=== PATIENT | male | born 1975 | race Caucasian/White ===

== ENCOUNTER → 2020-05-23 07:24 | Outpatient (CLI) | payer BC, SELFPAY ==
--- NOTE | ~2020-05-23 | MR_ITS ---
EXAMINATION: MR knee RT wo con DATE: 05/23/2020 08:12 INDICATION: Right knee pain post climbing injury with pop one and half weeks prior TECHNIQUE: Magnetic resonance imaging (MRI) of the right knee was performed without intravenous contr ast. Sequences included coronal PD-weighted FSE, coronal PD-weighted FS FSE, sagittal T2-weighted FS E, sagittal PD-weighted FS FSE and axial PD weighted fat saturated FSE. COMPARISON: Radiographs dated 03/17/2020 FINDINGS: Medial compartment: There is a very small radial tear along the inner third of the posterior horn of the medial meniscus. There are adjacent small partial-thickness chondral fissures along the immediately overlying anterio r weightbearing medial femoral condyle and underlying medial tibial plateau, both without degenerativ e subchondral changes.. Lateral compartment: Lateral meniscus is normal. Small region of partial-thickness chondral fissuring without degenerative subchondral changes along the posterior aspect of the lateral tibial plateau. Patellofemoral compartment: Small partial-thickness chondral fissure at the central aspect of the lateral tibial plateau involvin g up to 50% the cartilage thickness. Deeper chondral fissuring with minimal underlying subarticular e malika at the patellar apical ridge and medial facet. Deep chondral fissuring with minimal underlying c ortical irregularity at the caudal aspect of the trochlear groove. Remainder of the trochlear cartila ge is normal. Ligaments and tendons: Anterior and posterior cruciate ligaments are normal. The fibular collateral ligament complex is norm al. Mild edema surrounding the otherwise normal-appearing proximal medial collateral ligament consist ent with likely recent low-grade sprain. The extensor mechanism is normal. The visualized medial and lateral hamstring tendons as well as the iliotibial band are normal. Fluid: Small to moderate-sized right knee joint effusion. No loose osteochondral bodies identified. Mild pre patellar edema without discrete bursal fluid collection. Osseous/other: Minimal edema at the proximal tibia anterior to the intercondylar eminence underlying the insertion o f the intact appearing anterior root of the medial meniscus. 5 mm lesion in the distal metaphyseal re gion of the femur which is isointense to the cartilage of likely representing a small enchondroma. IMPRESSION: 1. Low-grade sprain of the proximal medial collateral ligament. 2. Small radial tear along the inner free edge of the posterior horn of the medial meniscus. 3. Mild tricompartmental osteoarthritis with small regions of high-grade chondral malacia in the harper llofemoral compartment and small regions of moderate grade chondral malacia in the medial and lateral compartments as detailed above. 4. Likely reactive small to moderate-sized knee joint effusion. Reviewed, dictated and finalized at location A. [employer] IMPRESSION: 1. Low-grade sprain of the proximal medial collateral ligament. 2. Small radial tear along the inner free edge of the posterior horn of the med ial meniscus. 3. Mild tricompartmental osteoarthritis with small regions of high-grade chondr al malacia in the patellofemoral compartment and small regions of moderate grad e chondral malacia in the medial and lateral compartments as detailed above. 4. Likely reactive small to moderate-sized knee joint effusion.
== END ==
PROVIDERS: Visit Provider Nurse Practitioner Family
DX: S83.411A Sprain of medial collateral ligament of right knee, initial encounter (principal); X58.XXXA Exposure to other specified factors, initial encounter; M17.11 Unilateral primary osteoarthritis, right knee
CPT/HCPCS: 73721

== ENCOUNTER 2020-06-10 01:05 | Day surgery (SDC) | payer BC, SELFPAY ==
[2020-06-01 17:49] VITALS: BMI 46.1
[2020-06-10] VITALS (7 sets, daily range): BP systolic 126–152; BP diastolic 94–99; PULSE 74–93; RESP 12–20; TEMP 36.3–36.6; O2SAT 95–99
--- NOTE | 2020-06-10 07:21 | WPDHPUPDATE1 ---
History and Physical Update Update Date/Time: 06/10/20 07:21 History and Physical has been reviewed, including an updated exam of the patient. There are NO changes in the patient's condition. Risks, benefits, and alternatives have been discussed and questions answered. Patient agrees to proceed with procedure.
[2020-06-10] MEDS: ACETAMINOPHEN 500 MG TABLET 1000 MG PO (11:55)
[2020-06-10] MEDS: CELECOXIB 200 MG CAPSULE PO (11:56)
[2020-06-10] MEDS: LACTATED RINGERS 1,000 ML 30 ML IV CONT ×2 (11:57→14:33)
--- NOTE | 2020-06-10 13:25 | WPDANESEPPF ---
Anes - Initial Pre Proc Eval Procedure: Operation Date: 06/10/20 13:30 Proposed Procedures p Right Knee Arthroscopy, Proceed As Indicated - Derrick Bonner MD Date/Time: 06/10/20 13:25 Surgeon: Derrick Bonner MD Pre Op Diagnosis: right medial meniscus tear Patient Data Age: 44 Gender: M Height: 5 ft 11 in Weight: 107.6 kg Last Vital Signs Temp 36.6 C 06/10/20 11:43 Pulse 93 06/10/20 11:43 Resp 20 06/10/20 11:43 BP 126/96 H 06/10/20 11:43 Pulse Ox 98 06/10/20 11:43 Allergies Allergy/AdvReac Type Severity Reaction Status Date / Time No Known Allergies Allergy Verified 06/10/20 12:17 Home Medications Medication Instructions Recorded Confirmed Type multivitamin [Daily Multivitamin] 1 tablet PO DAILY 06/01/20 06/10/20 History Patient hx anesthesia problems: none Family hx anesthesia problems: none PMFSH Past Medical History Medical History High blood pressure determined by examination Knee effusion, right Knee injury Medial meniscus tear Plantar fasciitis Right knee pain Social History Social History Smoking packs per day: 0.75 Smoking cigarettes per day: 15.0 Years smoked: 25 Smoking pack-years: 18.75 Smoking status: Former smoker Tobacco type: cigarettes Smoking end date: 04/30/17 Alcohol intake: current Drinks per week: 28 Last use: 04/2017 Living arrangements: with family Spiritual care concerns: No Anes - Eval Final PreProcedure Day of Procedure 06/10/20 13:25 Patient weight: obese Heart: regular rate and rhythm Lungs: clear to auscultation Airway: Mallampati scale class II Neurological: alert and oriented Last oral intake: >/= 8 hours ASA classification: II Emergent: no Anesthetic plan: proceed Anesthesia type and monitoring: general LMA and standard monitoring Informed Consent: The patient's anesthetic plan and its attendant risks and benefits were discussed with the patient/family/POA. Questions were solicited and answers provided to the satisfaction of the patient/family/POA.
[2020-06-10] MEDS: ceFAZolin 3 GM/D5W 100 ML 100 ML IVPB (13:38)
[2020-06-10] MEDS: BUPIVACAINE HCL 0.5% PF 30 ML VIAL INFILTRATE (13:57)
--- NOTE | 2020-06-10 14:36 | PM.PROC ---
Procedure Note - Detailed Date of procedure: 06/10/20 Pre-op diagnosis: right medial meniscus tear Post-op diagnosis: same Procedure performed: RIGHT PARTIAL MEDIAL MENISCECTOMY Description of procedure: PATIENT WAS TAKEN TO THE OR. RIGHT LEG WAS PREPPED AND DRAPED STERILE. TROCARS WERE PLACED IN THE USUAL FASHION. CAMERA WAS INTRODUCED. THERE WAS CHONDROMALACIA TO THE PATELLA FEMORAL JOINT WHICH WAS MINIMAL THERE WAS MINIMAL SYNOVITIS IN HOFFA'S SYNOVIUM. THE MEDIAL COMPARTMENT SHOWED NO CHONDROMALACIA TO THE MED FEMORAL CONDYLE. THERE WAS A COMPLEX TEAR TO THE MEDIAL MENISCUS. A MEDIAL PORTAL WAS ESTABLISHED. A SHAVER AND A BITER WERE INTRODUCED AT SEPARATE TIMES AND A PARTIAL MEDIAL MENISCECTOMY WAS THEN PREFORMED. APPROXIMATELY 25% OF THE MEDIAL MENISCUS WAS REMOVED FROM THE INNER 3RD.. THERE WAS A STABLE POSTERIOR RIM OF MENISCUS AFTER RESECTION. THE ACL WAS INTACT. THE LATERAL MENISCUS WAS NOT TORN AND THERE WAS NO APPRECIABLE CHONDROMALACIA TO THE LATERAL COMPARTMENT. THE PATELLO FEMORAL JOINT UNDERWENT CHONDROPLASTY. THE WOUNDS WERE APPROXIMATED WITH 4.0 NYLON. STERILE DRESSING WAS APPLIED. PATIENT WAS EXTUBATED. Anesthesia: GLMA Surgeon: Derrick Bonner MD Estimated blood loss (mL): 5 Complications: No immediate complications Condition: stable Disposition: PACU
[2020-06-10] MEDS: oxyCODONE HCL (*CRX) 5 MG TAB IR PO (15:18)
[2020-06-10] MEDS: fentaNYL CITRATE INJ (*CRX) 100 MCG/2 ML VIAL 25 MCG IV PUSH (15:45)
--- NOTE | 2020-06-10 16:15 | SUR.PHASEII ---
CRUTCHES ORDERED FOR AND GIVEN TO PATIENT.
== END 2020-06-10 16:16 | disposition home or self-care (01) ==
PROVIDERS: Visit Provider Orthopaedic Surgery
PROC: (CPT 29870; principal; 2020-06-10 13:30)
DX: S83.231A Complex tear of medial meniscus, current injury, right knee, initial encounter (principal); X50.0XXA Overexertion from strenuous movement or load, initial encounter; Z87.891 Personal history of nicotine dependence; E66.9 Obesity, unspecified; Z68.33 Body mass index [BMI] 33.0-33.9, adult
CPT/HCPCS: 29881; A9270; J0690; J1100; J2250; J2405; J2704; J3010; J7120